=== PATIENT | male | born 1960 | race American Indian/Alaskan Native ===

== ENCOUNTER 2019-03-06 09:02 | Emergency (ER) | payer SELFPAY ==
[2019-03-06] MEDS ORDERED: BOOSTRIX IM ONE (10:04)
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
[2019-03-06 10:25] VITALS: BP 184/100
== END 2019-03-06 10:24 | disposition home or self-care (01) ==
LOC: ED 09:02
DX: L23.7 Allergic contact dermatitis due to plants, except food (principal); I10 Essential (primary) hypertension; F17.200 Nicotine dependence, unspecified, uncomplicated; F12.10 Cannabis abuse, uncomplicated; Z79.899 Other long term (current) drug therapy
CPT/HCPCS: 90471; 90715; 99282